=== PATIENT | female | born 1970 | race Caucasian/White ===

== ENCOUNTER 2017-04-30 14:57 | Emergency (ER) | payer BC ==
[~2017-04-30] VITALS: Ht 167.6 cm; Wt 69.0 kg
[~2017-04-30 14:57] MED LIST: ROPI1TAB PO
[2017-04-30 15:00] VITALS: TEMP 37; Ht 167.6 cm; Wt 69.0 kg
[2017-04-30] MEDS ORDERED: ASPIRIN 324 MG CHEW PO STA (15:22)
[2017-04-30] MEDS ORDERED: MEDR150I19 IM (15:32)
[2017-04-30] MEDS ORDERED: WLLSR150 PO (15:32)
--- NOTE | 2017-04-30 15:43 | DIAGNOSTIC IMAGING REPORT ---
CHEST ONE VIEW PORTABLE HISTORY: Atypical chest pain COMPARISON: Chest 11/19/2015. Chest CT 12/29/2015. FINDINGS: The lungs are clear. Cardiac silhouette is normal in size. No pleural effusions. No pneumothorax. Scattered subcentimeter pulmonary nodules seen in the prior chest CT are not well evaluated by this modality due to their small size. IMPRESSION: No acute process. Electronically signed by: Nasir Gutierrez M.D. 04/30/2017 3:42 PM Dictated Date/Time: 04/30/2017 3:40 PM
[2017-04-30 15:51] LABS: BASO % 0.3 %; BASO ABS # 0.02 K/uL (0-0.2); COMPLETE YES; EOS % 2.5 %; HEMATOCRIT 39.8 % (37-47); IG% 0.1 %; LYMPH % 29.7 %; LYMPH ABS # 2.05 K/uL (1.2-3.4); MEAN CORPUSCULAR HEMOGLOBIN 31.8 pg (25-34); MEAN CORPUSCULAR HGB CONC 34.2 g/dl (32-36); MEAN PLATELET VOLUME 9.5 fL (7.4-10.4); MONO % 5.9 %; NEUT % 61.5 %; PLATELET COUNT 235 K/uL (130-400); RED BLOOD COUNT 4.28 M/uL (4.2-5.4); WHITE BLOOD COUNT 6.91 K/uL (4.8-10.8)
[2017-04-30 16:01] LABS: POINT OF CARE TROPONIN I < 0.030 ng/ml (0-0.045)
[2017-04-30 16:11] LABS: ALT/SGPT 25 U/L (12-78); AST/SGOT 16 U/L (15-37); BLOOD UREA NITROGEN 15 mg/dl (7-18); BUN/CREATININE RATIO 19.6 (10-20); CALCIUM 8.4 mg/dl (8.5-10.1); CARBON DIOXIDE 23 mmol/L (21-32); CHLORIDE 109 mmol/L (98-107); CREATININE 0.78 mg/dl (0.60-1.20); GLUCOSE 96 mg/dl (70-99); POTASSIUM 3.9 mmol/L (3.5-5.1); SODIUM 140 mmol/L (136-145)
[2017-04-30 16:16] LABS: ALKALINE PHOSPHATASE 81 U/L (45-117)
[2017-04-30] MEDS ORDERED: ALUMINUM/MAGNESIUM SUSP 30 ML UDC PO STA (16:29)
[2017-04-30 16:46] VITALS: BP 123/82; PULSE 81; O2SAT 97
--- NOTE | 2017-04-30 16:48 | EMERGENCY ROOM VISIT NOTE ---
History First contact with patient: 15:02 Chief Complaint: ILLNESS Stated Complaint: CHEST PAIN, SOB, NECK/SHOULDER PAIN, SENT BY History of Present Illness The patient is a 46 year old female who presents to the Emergency Room with complaints of chest pain which has been intermittent for the past few weeks. The patient states that she has had pains in the center of her chest a few times per day for the past few weeks. Her symptoms have been increasing in frequency for the past 2 days. She states that this morning, she had an episode of more intense pain, which radiated to the jaw and between the shoulder blades. The onset of symptoms was approximately 8 hours prior to arrival. She reports that the symptoms have somewhat resolved at this time, and she now has a dull pain in the center of the chest. She rates her current discomfort a 1/10. She did have a headache earlier today, but states this is not uncommon for her. The patient was seen here over one year ago for similar symptoms and was told it may be her stomach at that time. She did not have any further cardiac testing performed as an outpatient. She is adopted and is unsure of her family history. She has a personal history of asthma. She denies any personal cardiac history. The patient is a smoker. She is on a Depo -Provera shot. She denies any recent travel. She denies any history of hypertension or hyperlipidemia. She denies any associated shortness of breath, nausea, vomiting, fatigue, palpitations or syncope. Review of Systems A complete 10 point review of systems was reviewed with the patient with pertinent positives and negatives as per history of present illness. All else were negative. Past Medical/Surgical History Medical Problems: (1) Asthma (2) Restless leg syndrome Social History Smoking Status: Current Every Day Smoker Alcohol Use: none Drug Use: none Occupation Status: employed Current/Historical Medications Scheduled Bupropion HCl (Bupropion HCl Sr), 150 MG PO BID Fluticasone Prop/Salmeterol (Advair Diskus 100/50 60 Dose), 1 PUFF INH BID Medroxyprogesterone Acetate (C (Medroxyprogesterone Aceta), 150 MG IM Q3 Months Scheduled PRN Ropinirole (Requip), 1 MG PO HS PRN for Restless Legs Allergies Coded Allergies: Phenazopyridine (Verified Allergy, Unknown, ANAPHYLAXIS, 11/19/15) Physical Exam Vital Signs Date Time Temp Pulse Resp B/P (MAP) Pulse Ox O2 Delivery O2 Flow Rate FiO2 04/30/17 16:46 81 18 123/82 97 Room Air 04/30/17 16:10 76 04/30/17 15:00 37.0 106 16 164/92 97 Room Air Physical Exam VITALS: Vitals are noted on the nurse's note and reviewed by myself. Vital signs stable. GENERAL: This is a 46-year-old female, in no acute distress, nondiaphoretic, well-developed well-nourished. SKIN: Capillary reflex less than 2 seconds. HEENT: PERRLA. Mucous membranes moist. Neck is supple without nuchal rigidity. HEART: Regular rate and rhythm without murmurs gallops or rubs. LUNGS: Clear to auscultation bilaterally without wheezes, rales or rhonchi. CHEST: Mild reproducible tenderness over the right anterior chest wall. ABDOMEN: Positive bowel sounds x 4. Mild epigastric tenderness. No further tenderness to palpation. NEURO: Patient was alert and oriented to person place and time. Medical Decision & Procedures ER Provider Diagnostic Interpretation: CHEST ONE VIEW PORTABLE HISTORY: Atypical chest pain COMPARISON: Chest 11/19/2015. Chest CT 12/29/2015. FINDINGS: The lungs are clear. Cardiac silhouette is normal in size. No pleural effusions. No pneumothorax. Scattered subcentimeter pulmonary nodules seen in the prior chest CT are not well evaluated by this modality due to their small size. IMPRESSION: No acute process. Laboratory Results 04/30/17 15:37 Red Blood Count 4.28, Mean Corpuscular Volume 93.0, Mean Corpuscular Hemoglobin 31.8, Mean Corpuscular Hemoglobin Concent 34.2, Mean Platelet Volume 9.5, Neutrophils (%) (Auto) 61.5, Lymphocytes (%) (Auto) 29.7, Monocytes (%) (Auto) 5.9, Eosinophils (%) (Auto) 2.5, Basophils (%) (Auto) 0.3, Neutrophils # (Auto) 4.25, Lymphocytes # (Auto) 2.05, Monocytes # (Auto) 0.41, Eosinophils # (Auto) 0.17, Basophils # (Auto) 0.02 04/30/17 15:37 Test 04/30/17 15:37 04/30/17 15:42 White Blood Count 6.91 K/uL (4.8-10.8) Red Blood Count 4.28 M/uL (4.2-5.4) Hemoglobin 13.6 g/dL (12.0-16.0) Hematocrit 39.8 % (37-47) Mean Corpuscular Volume 93.0 fL (80-100) Mean Corpuscular Hemoglobin 31.8 pg (25-34) Mean Corpuscular Hemoglobin Concent 34.2 g/dl (32-36) Platelet Count 235 K/uL (130-400) Mean Platelet Volume 9.5 fL (7.4-10.4) Neutrophils (%) (Auto) 61.5 % Lymphocytes (%) (Auto) 29.7 % Monocytes (%) (Auto) 5.9 % Eosinophils (%) (Auto) 2.5 % Basophils (%) (Auto) 0.3 % Neutrophils # (Auto) 4.25 K/uL (1.4-6.5) Lymphocytes # (Auto) 2.05 K/uL (1.2-3.4) Monocytes # (Auto) 0.41 K/uL (0.11-0.59) Eosinophils # (Auto) 0.17 K/uL (0-0.5) Basophils # (Auto) 0.02 K/uL (0-0.2) RDW Standard Deviation 42.2 fL (36.4-46.3) RDW Coefficient of Variation 12.4 % (11.5-14.5) Immature Granulocyte % (Auto) 0.1 % Immature Granulocyte # (Auto) 0.01 K/uL (0.00-0.02) Anion Gap 8.0 mmol/L (3-11) Est Creatinine Clear Calc Drug Dose 82.5 ml/min Estimated GFR () 104.2 Estimated GFR (Non- 89.9 BUN/Creatinine Ratio 19.6 (10-20) Calcium Level 8.4 mg/dl (8.5-10.1) Total Bilirubin 0.3 mg/dl (0.2-1) Aspartate Amino Transf (AST/SGOT) 16 U/L (15-37) Alanine Aminotransferase (ALT/SGPT) 25 U/L (12-78) Alkaline Phosphatase 81 U/L (45-117) Total Creatine Kinase 66 U/L (26-192) Creatine Kinase MB < 0.5 ng/ml (0.5-3.6) Creatine Kinase MB Ratio (0-3.0) Total Protein 7.2 gm/dl (6.4-8.2) Albumin 3.6 gm/dl (3.4-5.0) Globulin 3.6 gm/dl (2.5-4.0) Albumin/Globulin Ratio 1.0 (0.9-2) Bedside D-Dimer 189 ng/mlFEU (0-450) Bedside Troponin I < 0.030 ng/ml (0-0.045) Medications Administered Medications (Trade) Dose Ordered Sig/Nayan Route Start Time Stop Time Status Last Admin Dose Admin Aspirin (Aspirin Chew) 324 mg NOW STAT PO 04/30/17 15:22 04/30/17 15:23 DC 04/30/17 15:40 324 MG Al Hydroxide/Mg Hydroxide (Maalox Susp) 30 ml NOW STAT PO 04/30/17 16:29 04/30/17 16:30 DC 04/30/17 16:44 30 ML ECG Rate (beats per minute): 96 Rhythm: normal sinus Findings: no acute ischemic change, no ectopy Change: no significant change ED Course The patient was evaluated as above. Labs were drawn and IV access was obtained. Patient was medicated with 324 mg ASA. Patient was reevaluated and had no relief. A GI cocktail was ordered. Findings were discussed with the patient. Options were discussed with the patient including admission for further testing vs discharge home. She prefers discharge. Discharge instructions were reviewed with the patient. The patient verbalized understanding of my assessment and treatment plan and was discharged home in good condition. Medical Decision Differential diagnosis includes acute coronary syndrome, pulmonary embolism, pneumothorax, pericarditis, myocarditis, endocarditis, anxiety, musculoskeletal pain, GERD, costochondritis, among others. The patient is a 46-year-old female who presents today complaining of chest pain intermittently for the past few weeks. Labs were unremarkable. Troponin was not elevated. D-dimer was not elevated. Chest x-ray was unremarkable. EKG showed no ischemia. The patient did have some epigastric tenderness and I expect her symptoms may be related to gastritis/GERD. Given the patient's symptoms I do feel that she should receive further cardiac testing, but given her negative workup today and low risk according to HEART score, I do feel this can safely be performed as an outpatient. The patient was agreeable to this. The patient's case was reviewed with Dr. Peterson, ED attending physician, who agreed with my assessment and treatment plan. Based on the patient's presentation and work up, I feel the patient is stable for outpatient treatment. The patient was educated to return to the emergency department for any worsening of their current condition or new/concerning symptoms. She will follow up with her PCP. Medication reconciliation: I attest that I have personally reviewed the patient 's current medication list. Blood pressure screening: Patient was found to have normal blood pressure on screening and does not require follow-up. Impression Primary Impression: Precordial chest pain Departure Information Dispostion Home / Self-Care Condition GOOD Referrals RV. Dickerson MD (PCP) Patient Instructions My [facility] Additional Instructions You have been treated in the Emergency Department for your Chest Pain. Laboratory results and Imaging Studies have ruled out any acute cardiac or pulmonary cause of your chest pain. Take a baby aspirin daily. You should schedule a follow-up appointment with your Primary Care Provider within 48 hours (but ideally tomorrow) for further evaluation from today's Emergency Department visit. Return to the Emergency Department if your current symptoms worsen despite treatment course outlined above, or if you develop any of the following symptoms : worsening chest pain, associated jaw/arm pain, nausea, dizziness, shortness of breath, bloody cough, or fainting.
[2017-04-30] MEDS ORDERED: ADVIN10/60 INH (21:43)
== END 2017-04-30 17:19 | disposition home or self-care (01) ==
LOC: C.EDB 14:58
DX: R07.2 Precordial pain (principal); J45.909 Unspecified asthma, uncomplicated; F17.200 Nicotine dependence, unspecified, uncomplicated

== ENCOUNTER → 2017-06-12 | Outpatient (CLI) | payer BC ==
[~2017-06-12] MED LIST changes: +ADVIN10/60 INH; +MEDR150I19 IM; +WLLSR150 PO
--- NOTE | 2017-06-13 07:54 | MAMMOGRAPHY REPORT ---
BILATERAL DIGITAL SCREENING MAMMOGRAM TOMOSYNTHESIS WITH CAD: 06/12/2017 CLINICAL HISTORY: Routine screening. TECHNIQUE: Breast tomosynthesis in addition to standard 2D mammography was performed. Current study was also evaluated with a Computer Aided Detection (CAD) system. COMPARISON: Comparison is made to exams dated: 07/19/2015 mammogram, 04/26/2011 mammogram, 10/20/2009 [facility] mogram, 10/12/2009 mammogram, and 10/03/2009 mammogram - [facility]. BREAST COMPOSITION: The tissue of both breasts is heterogeneously dense, which may obscure small mas ses. FINDINGS: There is a stable ribbon-shaped biopsy marker clip associated with a circumscribed mass in the 9:00 left breast. The mass measures slightly smaller comparing back to the 2008 mammogram, conf irming benignity. No new suspicious mass, architectural distortion or cluster of microcalcifications is seen. IMPRESSION: ACR BI-RADS CATEGORY 1: NEGATIVE There is no mammographic evidence of malignancy. A 1 year screening mammogram is recommended. The pa tient will receive written notification of the results. Approximately 10% of breast cancers are not detected with mammography. A negative mammographic report should not delay biopsy if a clinically suggestive mass is present. Joana Carmen M.D. ay/:06/12/2017 12:54:00 Senior Financial Reporting Analyst: Martha Ying, [facility] letter sent: Normal 1/2 BI-RADS Code: ACR BI-RADS Category 1: Negative
== END | disposition home or self-care (01) ==
LOC: C.MAMM 11:43
PROVIDERS: ATTEND Internal Medicine
DX: Z12.31 Encounter for screening mammogram for malignant neoplasm of breast (principal)

== ENCOUNTER 2019-11-20 06:13 | Observation (INO) ==
--- NOTE | 2019-11-02 12:56 | PAT Medication Instructions ---
Medication Instructions Date of Service November 02, 2019 Home Medications alprazolam [Xanax] 0.5 mg PO UD PRN fluticasone propion-salmeterol [Advair Diskus] 1 inh INHALATION BID PRN ropinirole 1 mg PO HS PRN verapamil 180 mg PO QDD cholecalciferol (vitamin D3) 5,000 unit PO DAILY ergocalciferol (vitamin D2) 50,000 unit PO WK naproxen sodium 550 mg PO UD PRN ASK your surgeon for instructions naproxen sodium 550 mg PO UD PRN STOP taking 24 hours before surgery ropinirole 1 mg PO HS PRN DO NOT take the morning of surgery cholecalciferol (vitamin D3) 5,000 unit PO DAILY ergocalciferol (vitamin D2) 50,000 unit PO WK Take morning of surgery With a small sip of water, OTHERWISE NOTHING TO EAT OR DRINK AFTER MIDNIGHT: alprazolam [Xanax] 0.5 mg PO UD PRN (if needed) fluticasone propion-salmeterol [Advair Diskus] 1 inh INHALATION BID PRN (if needed) Take evening before surgery alprazolam [Xanax] 0.5 mg PO UD PRN (if needed) fluticasone propion-salmeterol [Advair Diskus] 1 inh INHALATION BID PRN (if needed) verapamil 180 mg PO QDD Other Notes If you have any questions please call us at [phone] or [phone] or [phone] or [phone]
--- NOTE | 2019-11-03 15:42 | Anesthesiology Consultation ---
Date of Service November 03, 2019 Assessment & Plan (1) Encounter for pre-operative examination: TEST AM DOS Chart Review Chart Review: Acceptable Risk for Surgery and Patient seen in Pre Admission Testing Teaching & Discussion Instructed NPO after midnight before surgery, except medications with 15 cc of water. Medication instructions provided according to the PAT guidelines. History Surgery Operation Date: 11/20/19 07:30 Proposed Procedures p Robotic Total Laparoscopic Hysterectomy - Kirill Choudhury MD Height/Weight Height: 5 ft 4 in Weight: 72.4 kg Allergies Allergy/AdvReac Type Severity Reaction Status Date / Time phenazopyridine Allergy Severe COULDN'T Verified 11/03/19 15:32 BREATHE/DIAPHORESIS/FLUSHING apple Allergy Unknown APPLE Verified 11/03/19 15:32 Medications Home Medications Medication Instructions Recorded Confirmed Last Taken alprazolam [Xanax] 0.5 mg PO UD PRN 03/30/19 11/03/19 03/24/19 fluticasone propion-salmeterol 1 inh INHALATION BID PRN 03/30/19 11/03/19 Unknown [Advair Diskus] ropinirole 1 mg PO HS PRN 03/30/19 11/03/19 04/03/19 verapamil 180 mg PO QDD 03/30/19 11/03/19 10/24/19 cholecalciferol (vitamin D3) 5,000 unit PO DAILY 08/28/19 11/03/19 Unknown ergocalciferol (vitamin D2) 50,000 unit PO WK 08/28/19 11/03/19 Unknown naproxen sodium 550 mg PO UD PRN 08/28/19 11/03/19 Unknown Past Medical History Medical History (Updated 11/04/19 @ 08:22 by Cory Maki) Anemia CHRONIC Anxiety Asthma Advair PRN not daily Degenerative arthritis Diverticulosis History of optic neuritis Hypertension Major depressive disorder Migraine Osteoarthritis Restless leg syndrome Scoliosis Seasonal allergies Uterine fibroid Exercise / Class Metabolic Activity II 4-5 Yardwork/Stairs/Walk up hill (Denies CP with 1 FOS, "very mildly SOB by the top of the stairs") Past Surgical History Surgical History History of colonoscopy History of left breast biopsy benign History of wisdom tooth extraction Status post correction of deviated nasal septum Past Anesthesia History No Hx of Anesthesia Complications and No Family Hx of Anesthesia Complications (none known, pt is adopted) History of PONV No Hx of PONV and Hx of Motion Sickness Social History Smoking Status: Current every day smoker tobacco type: cigarettes Smoking cigarettes per day: 2-4 CIGS A DAY (AVERAGE) SOME DAYS NONE - ADVISED NPO Do You Dip or Chew Tobacco: No Hx Alcohol Use: Yes Alcohol type: beer, wine and hard liquor alcohol intake frequency: a few times a month Hx Substance Use: No substance use type: does not use Review of Systems Pt denies any recent chest pain, shortness of breath, palpitations, cough, fever or URI. +chronic allergic rhinitis Physical Exam Vital Signs BP: 138/86 (pt had endometrial biopsy WAREHOUSE RECEIVER, she is in pain) P: 75bpm SPO2: 98% RA T: 97.4 F R: 16 ENMT Mouth: + dental restorations (partial lower) and + chipped teeth (lower L side); no loose teeth Thyromental Distance: < 3.5 Finger Breadths (1.5) Mallampati Class: I Neck + shortened thyromental distance; neck extension not limited Respiratory normal respiratory effort Auscultation: lungs clear to auscultation bilaterally Cardiovascular Rate/Rhythm: regular rate and regular rhythm Heart Sounds: no murmur Vessels: no carotid bruit Extremities: no edema Testing Laboratory Results 11/03/19 15:48 Blood Type A Positive 11/03/19 15:48 Antibody Screen NEGATIVE 11/03/19 15:48 Electrocardiogram Date: 11/03/19 Findings: + NSR @ (71bpm) Nonspecific ST abnormality. *unconfirmed
[2019-11-03 16:07] LABS: Basophils # (auto) 0.04 K/uL (0-0.2); Basophils % (auto) 0.5 %; Eosinophils # (auto) 0.16 K/uL (0-0.5); Hematocrit (blood only) 42.3 % (37-47); Hemoglobin 13.9 g/dL (12.0-16.0); Immature Granulocytes # (auto) 0.01 K/uL (0.00-0.02); Immature Granulocytes % (auto) 0.1 %; Lymphocytes # (auto) 1.93 K/uL (1.2-3.4); Lymphocytes % (auto) 24.1 %; Mean Corpuscular Hemoglobin 31.3 pg (25-34); Mean Corpuscular Hgb Conc 32.9 g/dL (32-36); Mean Corpuscular Volume 95.3 fL (80-100); Mean Platelet Volume 9.4 fL (7.4-10.4); Monocytes # (auto) 0.33 K/uL (0.11-0.59); Monocytes % (auto) 4.1 %; Neutrophils # (auto) 5.54 K/uL (1.4-6.5); Neutrophils % (auto) 69.2 %; Platelet Count 225 K/uL (130-400); RDW Coefficient of Variation 12.2 % (11.5-14.5); RDW Standard Deviation 42.7 fL (36.4-46.3); Red Blood Count 4.44 M/uL (4.2-5.4); White Blood Count 8.01 K/uL (4.8-10.8)
[~2019-11-20 06:13] MED LIST changes: -ADVIN10/60 INH; +CEFAZOLIN 2000MG 2,000 MG/15 ML SYR IV SCH; +LACTATED RINGER'S 1,000 ML IV SCH; +LR 15ML/HR IV SCH; -MEDR150I19 IM; +PHENAZOPYRIDINE HCL 100 MG TAB PO SCH; -ROPI1TAB PO; -WLLSR150 PO
[2019-11-20] MEDS ORDERED: ACETAMINOPHEN 1000 MG/100 ML IV IV ONE (06:31)
[2019-11-20] MEDS ORDERED: ROCURONIUM BROMIDE 10 MG/ML 5 ML VIAL ONE (06:34)
[2019-11-20] MEDS ORDERED: MIDAZOLAM HCL 1 MG/ML 2ML VIAL ONE (06:34)
[2019-11-20] MEDS ORDERED: fentaNYL citrate 100 MCG/2 ML VIAL ONE ×3 (06:34→10:03)
[2019-11-20] MEDS ORDERED: ONDANSETRON INJ 2 MG/ML 2 ML VIAL ONE (06:34)
[2019-11-20] MEDS ORDERED: LIDOCAINE HCL 2% 2 ML VIAL/AMP(20MG/ML) INFIL ONE (06:34)
[2019-11-20] MEDS ORDERED: PROPOFOL IV EMULSION 10 MG/ML 20 ML VIAL IV ONE (06:34)
[2019-11-20] MEDS ORDERED: DEXAMETHASONE SOD INJ 4 MG/ML VIAL ONE (06:34)
[2019-11-20] MEDS ORDERED: BUPIVACAINE 0.5 % 5 MG/1 ML MPF 30ML VIAL ONE (06:55)
--- NOTE | 2019-11-20 07:17 | History & Physical Bridge Note ---
Date of Service November 20, 2019 History & Physical Bridge Note I have examined the patient, reviewed the History & Physical and in the interval since the performance of the History & Physical I have noted the following changes of clinical significance: no changes noted
[2019-11-20 07:28] LABS: Basophils # (auto) 0.05 K/uL (0-0.2); Basophils % (auto) 0.8 %; Eosinophils # (auto) 0.26 K/uL (0-0.5); Hematocrit (blood only) 39.7 % (37-47); Hemoglobin 13.3 g/dL (12.0-16.0); Immature Granulocytes # (auto) 0.01 K/uL (0.00-0.02); Immature Granulocytes % (auto) 0.2 %; Lymphocytes # (auto) 1.66 K/uL (1.2-3.4); Lymphocytes % (auto) 25.9 %; Mean Corpuscular Hemoglobin 31.2 pg (25-34); Mean Corpuscular Hgb Conc 33.5 g/dL (32-36); Mean Corpuscular Volume 93.2 fL (80-100); Mean Platelet Volume 9.3 fL (7.4-10.4); Monocytes # (auto) 0.37 K/uL (0.11-0.59); Monocytes % (auto) 5.8 %; Neutrophils # (auto) 4.07 K/uL (1.4-6.5); Neutrophils % (auto) 63.3 %; Platelet Count 199 K/uL (130-400); RDW Coefficient of Variation 12.5 % (11.5-14.5); RDW Standard Deviation 42.5 fL (36.4-46.3); Red Blood Count 4.26 M/uL (4.2-5.4); White Blood Count 6.42 K/uL (4.8-10.8)
[2019-11-20] MEDS ORDERED: GLYCOPYRROLATE 0.2 MG/ML VIAL ONE ×2 (08:15→09:48)
[2019-11-20] MEDS ORDERED: ALBUTEROL HFA INHALER 8.5 GM ONE (08:15)
[2019-11-20] MEDS ORDERED: PROMETHAZINE HCL 12.5 MG in SODIUM CHLORIDE 0.9% 50 ML IV PRN ×2 (08:46→10:07)
[2019-11-20] MEDS ORDERED: fentaNYL citrate 100 MCG/2 ML VIAL IV PRN (08:46)
[2019-11-20] MEDS ORDERED: ONDANSETRON INJ 2 MG/ML 2 ML VIAL IV PRN ×2 (08:46→10:07)
[2019-11-20] MEDS ORDERED: ePHEDrine sulfate 50 MG/ML AMP IV PRN (08:46)
[2019-11-20] MEDS ORDERED: HYDROmorphone INJ 1 MG/ML SYRINGE IV PRN (08:46)
[2019-11-20] MEDS ORDERED: ATROPINE SULFATE 0.1 MG/ML 10ML SYR IV PRN (08:46)
[2019-11-20] MEDS ORDERED: TISSEEL FIBRIN SEALANT 4ML TOP ONE (09:17)
[2019-11-20] MEDS ORDERED: NEOSTIGMINE METHYLSULFATE 5 MG/5 ML SYR ONE (09:48)
[2019-11-20] MEDS ORDERED: KETOROLAC 30 MG/ML VIAL ONE (09:56)
[2019-11-20] MEDS ORDERED: raNITIdine HCl 25 MG/ML VIAL IV ONE (09:57)
--- NOTE | 2019-11-20 10:06 | Post Operative Brief Note ---
PG Immediate Post Op with CF Date of Surgery November 20, 2019 Pre & Post Diagnosis Operation Date: 11/20/19 07:30 Pre-Op Diagnosis: Abdominal Pain, Dysmenorrhea, Abnormal uterine bleeding Post-Op Diagnosis: Abdominal Pain, Dysmenorrhea, Abnormal uterine bleeding I identified the patient and participated in the time-out.: Yes Procedure Operation Date: 11/20/19 07:30 Actual Procedures p Robotic Total Laparoscopic Hysterectomy with bilateral salpingo-oopherectomy, cystoscopy(Not Applicable) - Kirill Choudhury MD Complications: None Surgeon Kirill Choudhury MD [place] Tender Mnanie Tovar PGY2 Estimated Blood Loss 30 Findings Consistent with Post-Op Diagnosis Specimens Specimen Description: A. Uterus, cervix, bilateral fallopian tubes Drains Encinas Catheter
[2019-11-20] MEDS ORDERED: ACETAMINOPHEN 325 MG TAB PO PRN (10:07)
[2019-11-20] MEDS ORDERED: SIMETHICONE 80 MG CHEW PO PRN (10:07)
[2019-11-20] MEDS ORDERED: OXYCODONE/ACETAMINOPHEN 5mg/325mg TAB PO PRN ×2 (10:07)
[2019-11-20] MEDS ORDERED: IBUPROFEN 600 MG TAB PO PRN (10:07)
--- NOTE | 2019-11-20 11:17 | Anesthesiology Progress Note ---
Date of Service November 20, 2019 Anesthesia Post Procedure Vital Signs Vital Signs: Temp Pulse Resp BP Pulse Ox 11/20/19 11:05 36.9 C 60 13 111/74 98 11/20/19 10:55 63 14 123/73 98 11/20/19 10:45 64 14 108/75 96 11/20/19 10:35 70 23 142/70 H 98 11/20/19 10:18 36.7 C 77 12 136/71 98 Pain Intensity Right Abdomen: Pain Intensity: 5 Abdomen: Pain Intensity: 2 Transfer of Care Handoff Completed per policy Notes Mental Status: alert / awake / arousable and participated in evaluation Patient Amnestic to Procedure: Yes Nausea / Vomiting: adequately controlled Pain: adequately controlled Airway Patency, RR, SpO2: stable & adequate BP & HR: stable & adequate Hydration State: stable & adequate Anesthetic Complications: no major complications apparent and Pt Satisfied with anesthetic care
--- NOTE | 2019-11-20 11:18 | Operative Report ---
DATE OF OPERATION: 11/20/2019 PROCEDURE: Robotic-assisted total laparoscopic hysterectomy, bilateral salpingo-oophorectomy and cystoscopy. SURGEON: Kirill Choudhury MD. CASE FINISHING MACHINE ADJUSTER: Mannie Tovar, PGY-2. PREOPERATIVE DIAGNOSES: 1. Chronic pelvic pain. 2. Dysmenorrhea. 3. Menorrhagia. 4. Fibroid uterus. POSTOPERATIVE DIAGNOSES: 1. Chronic pelvic pain. 2. Dysmenorrhea. 3. Menorrhagia. 4. Fibroid uterus. 5. Likely adenomyosis. ESTIMATED BLOOD LOSS: 30 mL. DRAINS: Encinas. FLUIDS: Continuous lactated Ringer. URINE OUTPUT: Via Encinas. COMPLICATIONS: None. FINDINGS: There was noted to be a mildly enlarged uterus with a posterior intramural fibroid that appeared to be grossly noticeable on evaluation of the uterus. Both ovaries were normal-appearing. The overall appearance of the uterus was consistent with likely adenomyosis due to the friable nature of the uterine serosa as well as the irregular contours of the uterus. The fallopian tubes were also normal-appearing. Bowels and upper abdomen were grossly normal-appearing as well. There was noted to be bilateral ureteral efflux and intact bladder on cystoscopy at the completion of the case. DESCRIPTION OF PROCEDURE: The patient was taken to the operating room after consents were ensured. Upon presentation, she was properly identified. General endotracheal anesthesia was obtained without difficulty. The patient was then prepped and draped in normal sterile fashion. A preprocedural timeout was performed, after which a Encinas was then introduced into the bladder and a VCare uterine manipulator was placed per home office claim specialist's recommendations. The laparoscopic portion of the case was then initiated. An incision was made in the superior aspect of the umbilicus to accommodate a 12 mm trocar. A Veress needle was inserted through the incision and the abdomen was insufflated to 15 mmHg. There was noted to be symmetric abdominal rise and tympany over the liver and an opening pressure of 2 mmHg consistent with appropriate intraabdominal insufflation. A 12 mm optically guided trocar was then introduced through the umbilical incision. 8 mm incisions were then made in the right and left lower quadrants and robotic ports were then introduced under direct visualization with atraumatic entry noted. The robot was then docked per protocol. The hysterectomy portion of the case was then initiated. There was noted to be bowel adhesions to the left sidewall, which were reduced to allow for visualization of the left adnexa and IP ligament. The ureters were identified and noted to be quite distal to the IP ligaments. The round ligament was then identified, serially cauterized and dissected at approximately mid ligament. The IP ligament was then serially cauterized and dissected and was then continued through serial cauterization and dissection to the level of the round ligament dissection. The bladder flap was then started anteriorly, continued to the right aspect of the uterus. The broad ligament was then serially dissected to the level of the uterine vessels. The attention was then turned to the right adnexa. The right ureter was identified and noted to be quite distal to the right IP ligament. The right round ligament was serially cauterized and dissected. The right IP ligament was then serially cauterized, dissected and continued to the level of the round ligament. The bladder flap anteriorly was continued and connected with the bladder flap started on the left aspect of the uterus. The bladder was then dissected off of the lower uterine segment and cervix until clear uterine manipulator cup was identified. The broad ligament was then continued to the level of the right uterine vessels and the right and left uterine vessels were serially cauterized and dissected. The colpotomy was then started anteriorly, continued circumferentially around the uterus, dissecting the cervix from the vagina. The uterus and fallopian tubes, ovaries, and cervix were all delivered through the vagina and the vaginal cuff was closed with a V-Loc suture in continuous running stitch. The abdomen was then suction irrigated and noted to be hemostatic and the decision was made to end the robotic portion of the case. The robot was then undocked and the abdomen was desufflated, but the trocars were left in place. The cystoscopy was then performed and there was noted to be bilateral ureteral efflux and intact bladder on cystoscopy. The abdomen was then insufflated and the abdomen was then reinspected and noted to have continued hemostasis. The abdomen was then resuction irrigated and Tisseel was placed over the vaginal cuff and dissected pedicles. The abdomen was then desufflated and the patient's abdominal incisions were closed. The umbilical incision fascia was closed with 0 Vicryl with a single interrupted stitch. The skin was reapproximated at all incisions with 3-0 Vicryl with interrupted stitch. Dermabond was placed on top. 12 mL of plain Marcaine were distributed throughout the incisions. The patient was then woken from anesthesia and taken to recovery room in excellent condition. Needle, sponge and instrument counts were correct at the completion of the case. I attest to the content of the Intraoperative Record and any orders documented therein. Any exception s are noted below.
[2019-11-20] MEDS ORDERED: DOCUSATE SODIUM 100 MG CAP PO SCH (21:00)
--- NOTE | 2019-11-23 08:08 | Discharge Summary ---
PROCEDURES WHILE ADMITTED: Total laparoscopic hysterectomy, bilateral salpingo-oophorectomy, and cystoscopy. HOSPITAL COURSE: The patient was admitted for the planned above procedure. The procedure was performed without complication. The patient remained in house for approximately 6-7 hours post-surgery for recovery time. During that time, she met all postoperative goals and was discharged home in stable condition. Both written and verbal discharge instructions were provided to the patient in detail and all questions answered to the patient's satisfaction prior to discharge. The patient will follow up in 2 weeks' time for further evaluation of postoperative course and was instructed to call with any issues or concerns.
== END 2019-11-20 17:30 | disposition home or self-care (01) ==
LOC: ASU 06:13 → 4N 06:13